=== PATIENT | female | born 1990 | race Caucasian/White ===

== ENCOUNTER 2019-08-07 00:11 | Emergency (ER) | payer OTHER ==
[~2019-08-07] VITALS: Ht 170.2 cm; Wt 77.1 kg
[2019-08-07 00:27] VITALS: Ht 170.2 cm; Wt 77.1 kg
[2019-08-07 04:09] VITALS: BP 100/62
== END 2019-08-07 04:12 | disposition home or self-care (01) ==
LOC: ED 00:11
DX: A54.9 Gonococcal infection, unspecified (principal); A64 Unspecified sexually transmitted disease
CPT/HCPCS: 87491; 87591; J0696